=== PATIENT | male | born 1990 | race Caucasian/White ===

== ENCOUNTER 2017-04-23 04:10 | Emergency (ER) | payer OTHER ==
[~2017-04-23] VITALS: Ht 172.7 cm; Wt 67.1 kg
[2017-04-23 04:38] VITALS: BP 135/97
== END 2017-04-23 04:38 | disposition other institution (70) ==
LOC: ED 04:10
DX: F19.10 Other psychoactive substance abuse, uncomplicated (principal); I16.0 Hypertensive urgency